=== PATIENT | female | born 1960 | race Hispanic/Latino ===

== ENCOUNTER → 2018-10-14 | Day surgery (SDC) | payer BC ==
[2018-09-30 13:10] VITALS: BMI 38.2
[~2018-10-14] MED LIST: Bupivacaine 0.5% 50 ML IJ ONE; HYDROmorphone 0.5 mg/0.5 ml ISec IVP PRN; Lactated Ringer's 1,000 ML IV SCH; Lidocaine 1% Inj (20ml) ONE; Liquid Adhesive TOP ONE; Midazolam 2 MG/2 ML VIAL ONE; Oxycodone/Acetaminophen 5/325 mg Tab ONE; Oxycodone/Acetaminophen 5/325 mg Tab PO PRN; Propofol 10 mg/ml Inj (20 ML) ONE
--- NOTE | 2018-10-14 11:42 | PCM.SURG1 ---
Surgeon's Initial Post Op Note - Surgeon's Notes Surgeon: Dr. Mccoy Moveman: Dr. Corral Type of Anesthesia: General Endo Anesthesia Administered By: Dr. Monzon Pre-Operative Diagnosis: Left groin intramuscular mass Operative Findings: Large 20c x 15 cm lipomatous deep intramuscular left groin mass Post-Operative Diagnosis: same Operation Performed: Left groin deep intramuscular mass removal Specimen/Specimens Removed: large left groin intramuscular mass Estimated Blood Loss: EBL {In ML}: 15 Blood Products Given: N/A Drains Used: No Drains Post-Op Condition: Fair Date of Surgery/Procedure: 10/14/18 Time of Surgery/Procedure: 09:45
[2018-10-14 11:53] VITALS: TEMP 98.1
[2018-10-14 12:58] VITALS: PULSE 83; RESP 20; O2SAT 94
[2018-10-14 14:36] VITALS: BP 121/72
--- NOTE | 2018-10-15 04:58 | OP ---
PROCEDURE DATE: 10/14/2018 PREOPERATIVE DIAGNOSIS: Deep intramuscular mass of the left groin. POSTOPERATIVE DIAGNOSIS: Deep intramuscular mass of the left groin. PROCEDURE PERFORMED: Excision of the 20 x 15 cm deep intramuscular left groin mass. SURGEON: Byron Mccoy MD LINING SCRUBBER: Robin Corral DO ANESTHESIA: General LMA anesthesia. ANESTHESIA ADMINISTERED BY: Dr. Monzon. SPECIMEN: Large groin mass, possibly representing lipoma. ESTIMATED BLOOD LOSS: Minimal. DRAINS: None. INDICATION: The patient is a 58-year-old female who is morbidly obese, who is noted to have a large lump in the anterior upper thigh adjacent to the groin on the left side. The patient had an MRI which showed presence of large lipoma extending from superficial portion of the left thigh down into the deep portion of the thigh and between the muscles. The patient was scheduled for excision of this mass. DESCRIPTION OF PROCEDURE: The patient was brought to the operating room and placed on the operating table in supine position. The patient was connected to the EKG, blood pressure, and pulse oximetry monitors. The patient then underwent general LMA anesthesia and was prepped and draped in the usual sterile fashion. First, standard time-out procedure took place and everybody in the room agreed as to the patient's identity, diagnosis, and procedure to be performed. Using lidocaine mixed with Marcaine, the area of the incision was infiltrated, and careful dissection was done through the skin into the subcutaneous fat parallel to the inguinal crease. Once the initial fat layer was removed, we then proceeded with making an incision through the Tremayne's fascia lateral through the greater saphenous vein and bring it down towards the major vessels. The lipoma was noted initially, and the layers of above that were cleared, and the lipoma was exposed. The lipoma extended all the way down towards the deep thigh in the direction of the obturator foramen. I carefully mobilized the lipoma from in between the vessels, which appeared to be completely separates from them and proceeded with delivering it through the wound. Due to the large size of this, we proceeded with resecting the first portion of that lipoma and then going down towards excising the entire lipoma. There was a small piece of it adjacent to the pelvic bone which was resected carefully in order to avoid any injury to the adjacent vessels. A tiny piece of that was left at the rim of the obturator foramen due to the tightness of the space and may be unable to safely resect that. Given the fact that almost entire lipoma was removed, I then proceeded with irrigation of the wound. There was excellent hemostasis and no bleeding noted. We then proceeded with closing the layers by first closing the fascial layer over the muscle, then bringing the Tremayne's fascia together using 3-0 Vicryl. The deep dermal layer was used to reapproximate the skin using 3-0 Vicryl, and the skin itself was closed using a 4-0 Monocryl. A sterile Dermabond dressing was applied to the wound. The patient tolerated the procedure well, and there were no complications. The patient was awakened and transferred to the recovery room for further observation. Byron Mccoy MD MTDNicci
== END | disposition home or self-care (01) ==
LOC: SDS 08:05
PROVIDERS: ATTEND General Practice
DX: D17.24 Benign lipomatous neoplasm of skin and subcutaneous tissue of left leg (principal); E66.01 Morbid (severe) obesity due to excess calories; I10 Essential (primary) hypertension; E78.00 Pure hypercholesterolemia, unspecified; Z68.38 Body mass index [BMI] 38.0-38.9, adult; Z90.710 Acquired absence of both cervix and uterus; Z90.721 Acquired absence of ovaries, unilateral
CPT/HCPCS: 27339; 88307; J0690; J1170; J2001; J2250; J2405; J2704; J2765; J3010; J7120

== ENCOUNTER 2018-10-16 21:21 | Observation (INO) | payer BC ==
[2018-10-16 21:31] VITALS: BMI 39.1
[2018-10-16 23:19] LABS: BASO # 0.03 K/mm3 (0.0-2.0); BASO % 0.3 % (0.0-3.0); EOS # 0.3 (0.0-0.7); EOS % 3.1 % (1.5-5.0); GRAN # 6.14 (1.4-6.5); GRAN % 63.1 % (50.0-68.0); HEMOGLOBIN 13.4 g/dL (12.0-16.0); LYMPH # 2.6 (1.2-3.4); LYMPH % 26.7 % (22.0-35.0); MEAN CELL VOLUME 89.6 fl (80.0-105.0); MEAN CORPUSCULAR HEMOGLOBIN 30.2 pg (25.0-35.0); MEAN CORPUSCULAR HGB CONC 33.7 g/dl (31.0-37.0); MEAN PLATELET VOLUME 9.3 fl (7.0-11.0); MONO # 0.7 (0.1-0.6); MONO % 6.8 % (1.0-6.0); RBC 4.44 10^6/uL (3.5-6.1); RED CELL DISTRIBUTION WIDTH 12.5 % (11.5-14.5); WHITE BLOOD COUNT 9.7 10^3/uL (4.5-11.0)
--- NOTE | 2018-10-16 23:23 | ED PDOC ---
Arrival/HPI <Benjamin Hair - Last Filed: 10/17/18 00:13> - General Historian: Patient - History of Present Illness Narrative History of Present Illness (Text): 10/16/18 23:20 58yr old female presents today with left leg cellulitis s/p recent lipoma removal on 10/14/18. pt denies fever/chills. pt states this morning she didnt notice any erythema and then tonight she felt slight pain in the anterior left thigh and removed the dressing and noticed swelling, erythema, tenderness and warmth to the anterior thigh. pt denies cp or sob. no abdominal pain. no dizzi ness or weakness. no other complaints. Symptom Onset: Gradual Severity Level: Mild <Madisno Prakash - Last Filed: 10/17/18 01:11> - General Chief Complaint: Abnormal Skin Integrity Time Seen by Provider: 10/16/18 21:22 Past Medical History - Provider Review Nursing Documentation Reviewed: Yes - Travel History Have you recently traveled outside [place] w/in the past 3 mons?: No - Cardiac Hx Pacemaker: No - Neurological Hx Paralysis: No - Hematological/Oncological Hx Blood Transfusions: No - Musculoskeletal/Rheumatological Hx Musculoskeletal Disorders: Yes Other/Comment: Lipoma Left Inguinal Region. - Psychiatric Hx Emotional Abuse: No Hx Physical Abuse: No Hx Substance Use: No - Surgical History Other/Comment: Lipoma Excision Left Inguinal Region. - Anesthesia Hx Anesthesia Reactions: No Hx Malignant Hyperthermia: No - Suicidal Assessment Feels Threatened In Home Enviroment: No <Madison Prakash - Last Filed: 10/17/18 01:11> Family/Social History - Physician Review Nursing Documentation Reviewed: Yes Family/Social History: Unknown Family HX Smoking Status: Never Smoked Hx Alcohol Use: Yes (WINE) Hx Substance Use: No <Madison Prakash - Last Filed: 10/17/18 01:11> Allergies/Home Meds <Benjamin Hair - Last Filed: 10/17/18 00:13> <Madison Prakash - Last Filed: 10/17/18 01:11> Allergies/Adverse Reactions: Allergies No Known Allergies Allergy (Verified 12/19/13 12:54) Home Medications: Home Meds Medication Instructions Recorded Confirmed Atorvastatin Calcium [Lipitor] 10 mg PO QPM 12/19/13 10/16/18 Aspirin [Aspirin Low Dose] 81 mg PO DAILY 08/20/15 10/16/18 amLODIPine [Norvasc] 10 mg PO DAILY 08/03/17 10/16/18 buPROPion SR [Wellbutrin SR 150 MG] 450 mg PO DAILY 08/03/17 10/16/18 Calcium Carbonate/Vitamin D3 1 tab PO DAILY 09/30/18 10/16/18 [Calcium 600 + Vit D Tablet] Escitalopram [Lexapro] 25 mg PO DAILY 09/30/18 10/16/18 Hydrochlorothiazide [Microzide] 12.5 mg PO DAILY 09/30/18 10/16/18 Multivitamin [Multivitamins] 1 cap PO DAILY 09/30/18 10/16/18 rOPINIRole [Requip] 0.25 mg PO QPM 09/30/18 10/16/18 Review of Systems - Review of Systems Constitutional: absent: Fatigue, Fevers Respiratory: absent: SOB, Cough Cardiovascular: absent: Chest Pain, Palpitations Gastrointestinal: absent: Abdominal Pain, Nausea, Vomiting Musculoskeletal: Arthralgias Skin: Cellulitis Neurological: absent: Headache, Dizziness Psychiatric: absent: Anxiety, Depression <Madison Prakash - Last Filed: 10/17/18 01:11> Physical Exam Vital Signs Temp Pulse Resp BP Pulse Ox 10/16/18 21:31 99 F 89 18 149/89 95 <Benjamin Hair - Last Filed: 10/17/18 00:13> Vital Signs Reviewed: Yes Vital Signs Temp Pulse Resp BP Pulse Ox 10/16/18 21:31 99 F 89 18 149/89 95 Temperature: Afebrile Blood Pressure: Normal Pulse: Regular Respiratory Rate: Normal Appearance: Positive for: Well-Appearing, Non-Toxic, Comfortable Pain Distress: None Mental Status: Positive for: Alert and Oriented X 3 - Systems Exam Head: Present: Atraumatic Mouth: Present: Moist Mucous Membranes Neck: Present: Normal Range of Motion Respiratory/Chest: Present: Clear to Auscultation, Good Air Exchange. No: Respiratory Distress, Accessory Muscle Use Cardiovascular: Present: Regular Rate and Rhythm, Normal S1, S2. No: Murmurs Back: Present: Normal Inspection Upper Extremity: Present: Normal ROM Lower Extremity: Present: Normal ROM, Tenderness (left leg; there is a large area of erythema, warmth, tenderness extending along the anterior aspect of the thigh. there is induration surrounding the large incision along the thigh just distal to the groin. ), Swelling, Erythema, Neurovascularly Intact, Capillary Refill < 2 s Neurological: Present: GCS=15, Speech Normal Skin: Present: Warm, Dry, Normal Color Psychiatric: Present: Alert <Madison Prakash - Last Filed: 10/17/18 01:11> Medical Decision Making - Lab Interpretations Lab Results: 10/16/18 22:40 10/16/18 22:40 Lab Results 10/16/18 22:40: WBC 9.7, RBC 4.44, Hgb 13.4, Hct 39.8, MCV 89.6, MCH 30.2, MCHC 33.7, RDW 12.5, Plt Count 407, MPV 9.3, Gran % 63.1, Lymph % (Auto) 26.7, [place] % (Auto) 6.8 H, Eos % (Auto) 3.1, Baso % (Auto) 0.3, Gran # 6.14, Lymph # (Auto) 2.6, [place] # (Auto) 0.7 H, Eos # (Auto) 0.3, Baso # (Auto) 0.03 10/16/18 22:40: Sodium 137, Potassium 3.2 L, Chloride 96 L, Carbon Dioxide 32, Anion Gap 13, BUN 19, Creatinine 0.9, Est GFR ( Amer) > 60, Est GFR (Non- Af Amer) > 60, Random Glucose 156 H, Calcium 9.5, Total Bilirubin 1.4 H, AST 35, ALT 29, Alkaline Phosphatase 94, Total Protein 7.3, Albumin 4.2, Globulin 3.0, Albumin/Globulin Ratio 1.4 - Medication Orders Current Medication Orders: Cefazolin Sodium (Ancef 1gm In Ns) 1 gm in 100 mls @ 100 mls/hr IVPB STAT STA; Protocol Stop: 10/17/18 01:01 <Benjamin Hair - Last Filed: 10/17/18 00:13> ED Course and Treatment: 10/16/18 23:26 58yr old female with cellulitis to the left thigh. recent surgery 2 days ago. cbc; wnl cmp: wnl blood cultures pending pt started on vanco and zosyn IV. pt seen by dr. farias in er; case discussed with dr. Avelar covering for Dr. Mccoy. would like patient to be admitted with IV abx. unable to admit directly to surgery; patients PMD is dr. ma. will admit to hospitalist with surgical consult. dr. Mccoy case discussed with dr. mckeon. accepts admission I discussed the plan in depth with the patient she is in agreement to stay in the hospital for further evaluation and IV antibiotics All aspects of this case were discussed the attending of record. Impression:cellulitis, leg admit med/surg observational status. <Madison Prakash - Last Filed: 10/17/18 01:11> - PA / FLEXOGRAPHIC PRESS OPERATOR / Resident Statement / has reviewed & agrees with the documentation as recorded. / has examined the patient and agrees with the treatment plan. <Benjamin Hair - Last Filed: 10/17/18 00:13> Disposition/Present on Arrival <Benjamin Hair - Last Filed: 10/17/18 00:13> - Present on Arrival Any Indicators Present on Arrival: No History of DVT/PE: No History of Uncontrolled Diabetes: No Urinary Catheter: No History of Decub. Ulcer: No History Surgical Site Infection Following: None - Disposition Have Diagnosis and Disposition been Completed?: Yes Disposition Time: 23:00 Patient Plan: Observation <Madison Prakash - Last Filed: 10/17/18 01:11> - Disposition Diagnosis: Cellulitis of leg Disposition: HOSPITALIZED Condition: FAIR Discharge Instructions (ExitCare): Cellulitis (ED) Forms: [employer] (Kazakh)
[2018-10-16 23:30] LABS: ALB/GLOB RATIO 1.4 (1.1-1.8); ALBUMIN 4.2 g/dL (3.0-4.8); ALT/SGPT 29 U/L (7-56); AST/SGOT 35 U/L (14-36); BLOOD UREA NITROGEN 19 mg/dL (7-21); CALCIUM 9.5 mg/dL (8.4-10.5); GFR NON-AFRICAN AMERICAN > 60
[2018-10-17] MEDS ORDERED: ceFAZolin 1 gm in NS 1 GM/100 ML BAG IVPB STA (00:02)
[2018-10-17] MEDS ORDERED: Piperacillin/Tazobact 3.375 gm 100 ML IVPB STA (00:36)
[2018-10-17] MEDS ORDERED: Vancomycin 1gm in NS 250ml 1 GM/250 ML BAG IVPB STA (00:36)
--- NOTE | 2018-10-17 01:35 | CP.PCM.HP ---
History of Present Illness - History of Present Illness History of Present Illness: H&P for Dr. Avelar, covering for Dr. Mccoy Consulted for: erythema and swelling at surgical site Pt is a 58F who underwent an excision of a large, deep, intramuscular lipoma of the left thigh 2 days ago through same day surgery and was discharged to home. Patient states that she removed the dressing this AM, and around 7PM tonight noted redness and swelling of the thigh so came to the Emergency room. Patient does have some pain directly around the incision. Patient denies any fevers, chills, numbness, tingling, paralysis, chest pain, abdominal pain, shortness of breath. Patient takes baby aspirin at home, but no other blood thinners. PMH: hypertension, hyperlipidemia, depression PSH: deep medial left thigh lipoma excision 10/14/18, right finger surgery, c- section x2, hysterectomy, oophorectomy All: NKDA Social: Denies tobacco, admits social ETOH, denies any drugs Present on Admission - Present on Admission Any Indicators Present on Admission: No Review of Systems - Review of Systems All systems: reviewed and no additional remarkable complaints except (as per HPI) Past Patient History - Past Medical History & Family History Past Medical History?: Yes Past Family History: Reviewed and not pertinent - Past Social History Smoking Status: Never Smoked Alcohol: Occasional Drugs: Denies Home Situation {Lives}: With Family - CARDIAC Hx Pacemaker: No - NEUROLOGICAL Hx Paralysis: No - HEMATOLOGICAL/ONCOLOGICAL Hx Blood Transfusions: No - MUSCULOSKELETAL/RHEUMATOLOGICAL Hx Musculoskeletal Disorders: Yes Other/Comment: Lipoma Left Inguinal Region. - PSYCHIATRIC Hx Emotional Abuse: No Hx Physical Abuse: No Hx Substance Use: No - SURGICAL HISTORY Other/Comment: Lipoma Excision Left Inguinal Region. - ANESTHESIA Hx Anesthesia Reactions: No Hx Malignant Hyperthermia: No Meds Allergies/Adverse Reactions: Allergies Allergy/AdvReac Type Severity Reaction Status Date / Time No Known Allergies Allergy Verified 12/19/13 12:54 Physical Exam - Constitutional Appears: Well, Non-toxic, No Acute Distress - Head Exam Head Exam: ATRAUMATIC, NORMOCEPHALIC - Eye Exam Eye Exam: Normal appearance. absent: Conjunctival injection, Scleral icterus - ENT Exam ENT Exam: Mucous Membranes Moist, Normal Oropharynx - Respiratory Exam Respiratory Exam: NORMAL BREATHING PATTERN. absent: Accessory Muscle Use, Respiratory Distress - Cardiovascular Exam Cardiovascular Exam: RRR - GI/Abdominal Exam GI & Abdominal Exam: Soft. absent: Distended, Tenderness - Extremities Exam Extremities exam: Positive for: pedal pulses present. Negative for: calf tenderness, pedal edema Additional comments: left medial thigh with surgical incision well approximated with dermabond, no drainage or bleeding from the site, firm area palpated under the incision will no fluctuance Erythema extending from the inguinal crease to just above the knee distally, midline of the lateral thigh laterally, and midline anterior medial thigh, area of ecchymosis of the medial thigh. Area is very warm to the touch - Neurological Exam Neurological exam: Alert, Oriented x3 Additional comments: no motor sensory deficit of the BL lower extremities - Psychiatric Exam Psychiatric exam: Normal Affect, Normal Mood - Skin Skin Exam: Dry, Normal Color, Warm Additional comments: except as noted above Results - Vital Signs Recent Vital Signs: Last Vital Signs Temp 98.8 F 10/17/18 00:29 Pulse 84 10/17/18 00:29 Resp 18 10/17/18 00:29 BP 120/75 10/17/18 00:29 Pulse Ox 100 10/17/18 00:29 - Labs Result Diagrams: 10/16/18 22:40 10/16/18 22:40 Labs: Laboratory Results - last 24 hr 10/16/18 10/16/18 22:40 22:40 WBC 9.7 RBC 4.44 Hgb 13.4 Hct 39.8 MCV 89.6 MCH 30.2 MCHC 33.7 RDW 12.5 Plt Count 407 MPV 9.3 Gran % 63.1 Lymph % (Auto) 26.7 [place] % (Auto) 6.8 H Eos % (Auto) 3.1 Baso % (Auto) 0.3 Gran # 6.14 Lymph # (Auto) 2.6 [place] # (Auto) 0.7 H Eos # (Auto) 0.3 Baso # (Auto) 0.03 Sodium 137 Potassium 3.2 L Chloride 96 L Carbon Dioxide 32 Anion Gap 13 BUN 19 Creatinine 0.9 Est GFR ( Amer) > 60 Est GFR (Non-Af Amer) > 60 Random Glucose 156 H Calcium 9.5 Total Bilirubin 1.4 H AST 35 ALT 29 Alkaline Phosphatase 94 Total Protein 7.3 Albumin 4.2 Globulin 3.0 Albumin/Globulin Ratio 1.4 Assessment & Plan - Assessment and Plan (Free Text) Assessment: 58F POD#1 s/p excision of large, deep lipoma of the medial left upper thigh with swelling and erythema of the left thigh: contact dermatitis vs cellulitis vs wound infection Plan: Admit to med surgery for observation F/U AM labwork Close clinical examinations US of the left lower extremity IV antibiotics PRN pain medication restart home medications Re-assess in the AM Supplement potassium HHD DVT ppx Discussed with Dr. Avelar, covering for Dr. Nadine Michael, PGY2
[2018-10-17] MEDS ORDERED: Potassium Chloride 20 mEq ER Tab PO STA (01:48)
--- NOTE | 2018-10-17 02:14 | CP.PCM.CON ---
History of Present Illness - History of Present Illness History of Present Illness: H&P for Dr. Avelar, covering for Dr. Mccoy Consulted for: erythema and swelling at surgical site Pt is a 58F who underwent an excision of a large, deep, intramuscular lipoma of the left thigh 2 days ago through same day surgery and was discharged to home. Patient states that she removed the dressing this AM, and around 7PM tonight noted redness and swelling of the thigh so came to the Emergency room. Patient does have some pain directly around the incision. Patient denies any fevers, chills, numbness, tingling, paralysis, chest pain, abdominal pain, shortness of breath. Patient takes baby aspirin at home, but no other blood thinners. PMH: hypertension, hyperlipidemia, depression PSH: deep medial left thigh lipoma excision 10/14/18, right finger surgery, c- section x2, hysterectomy, oophorectomy All: NKDA Social: Denies tobacco, admits social ETOH, denies any drugs Review of Systems - Review of Systems All systems: reviewed and no additional remarkable complaints except (as per HPI) Past Patient History - Past Medical History & Family History Past Medical History?: Yes Past Family History: Reviewed and not pertinent - Past Social History Smoking Status: Never Smoked Alcohol: Occasional Drugs: Denies Home Situation {Lives}: With Family - CARDIAC Hx Pacemaker: No - NEUROLOGICAL Hx Paralysis: No - HEMATOLOGICAL/ONCOLOGICAL Hx Blood Transfusions: No - MUSCULOSKELETAL/RHEUMATOLOGICAL Hx Musculoskeletal Disorders: Yes Other/Comment: Lipoma Left Inguinal Region. - PSYCHIATRIC Hx Emotional Abuse: No Hx Physical Abuse: No Hx Substance Use: No - SURGICAL HISTORY Other/Comment: Lipoma Excision Left Inguinal Region. - ANESTHESIA Hx Anesthesia Reactions: No Hx Malignant Hyperthermia: No Meds Allergies/Adverse Reactions: Allergies Allergy/AdvReac Type Severity Reaction Status Date / Time No Known Allergies Allergy Verified 12/19/13 12:54 - Medications Medications: Current Medications Acetaminophen (Tylenol 325mg Tab) 650 mg PO Q6 PRN PRN Reason: Pain, moderate (4-7) Amlodipine Besylate (Norvasc) 10 mg PO DAILY [facility] Aspirin (Ecotrin) 81 mg PO DAILY [facility] Atorvastatin Calcium (Lipitor) 10 mg PO QPM [facility] Bupropion HCl (Wellbutrin Xl) 450 mg PO DAILY [facility] Calcium Carbonate (Caltrate) 600 mg PO DAILY [facility] Enoxaparin Sodium (Lovenox) 40 mg SC DAILY [facility]; Protocol Escitalopram Oxalate (Lexapro) 25 mg PO DAILY [facility] Hydrochlorothiazide (Microzide) 12.5 mg PO DAILY [facility] Vancomycin HCl (Vancomycin 1gm) 1 gm in 250 mls @ 167 mls/hr IVPB Q12H [facility]; Protocol Multivitamins (Thera Tab) 1 tab PO DAILY [facility] Ropinirole HCl (Requip) 0.25 mg PO QPM [facility] Vitamin D (Vitamin D 400 Intl Units Tab) 200 intlu PO DAILY [facility] Physical Exam - Additional Findings Additional findings: - Constitutional Appears: Well, Non-toxic, No Acute Distress - Head Exam Head Exam: ATRAUMATIC, NORMOCEPHALIC - Eye Exam Eye Exam: Normal appearance. absent: Conjunctival injection, Scleral icterus - ENT Exam ENT Exam: Mucous Membranes Moist, Normal Oropharynx - Respiratory Exam Respiratory Exam: NORMAL BREATHING PATTERN. absent: Accessory Muscle Use, Respiratory Distress - Cardiovascular Exam Cardiovascular Exam: RRR - GI/Abdominal Exam GI & Abdominal Exam: Soft. absent: Distended, Tenderness - Extremities Exam Extremities exam: Positive for: pedal pulses present. Negative for: calf tenderness, pedal edema Additional comments: left medial thigh with surgical incision well approximated with dermabond, no drainage or bleeding from the site, firm area palpated under the incision will no fluctuance Erythema extending from the inguinal crease to just above the knee distally, midline of the lateral thigh laterally, and midline anterior medial thigh, area of ecchymosis of the medial thigh. Area is very warm to the touch - Neurological Exam Neurological exam: Alert, Oriented x3 Additional comments: no motor sensory deficit of the BL lower extremities - Psychiatric Exam Psychiatric exam: Normal Affect, Normal Mood - Skin Skin Exam: Dry, Normal Color, Warm Additional comments: except as noted above Results - Vital Signs Recent Vital Signs: Last Vital Signs Temp 98.8 F 10/17/18 00:29 Pulse 84 10/17/18 00:29 Resp 18 10/17/18 00:29 BP 120/75 10/17/18 00:29 Pulse Ox 100 10/17/18 00:29 - Labs Result Diagrams: 10/16/18 22:40 10/16/18 22:40 Labs: Laboratory Results - last 24 hr 10/16/18 10/16/18 22:40 22:40 WBC 9.7 RBC 4.44 Hgb 13.4 Hct 39.8 MCV 89.6 MCH 30.2 MCHC 33.7 RDW 12.5 Plt Count 407 MPV 9.3 Gran % 63.1 Lymph % (Auto) 26.7 [place] % (Auto) 6.8 H Eos % (Auto) 3.1 Baso % (Auto) 0.3 Gran # 6.14 Lymph # (Auto) 2.6 [place] # (Auto) 0.7 H Eos # (Auto) 0.3 Baso # (Auto) 0.03 Sodium 137 Potassium 3.2 L Chloride 96 L Carbon Dioxide 32 Anion Gap 13 BUN 19 Creatinine 0.9 Est GFR ( Amer) > 60 Est GFR (Non-Af Amer) > 60 Random Glucose 156 H Calcium 9.5 Total Bilirubin 1.4 H AST 35 ALT 29 Alkaline Phosphatase 94 Total Protein 7.3 Albumin 4.2 Globulin 3.0 Albumin/Globulin Ratio 1.4 Assessment & Plan - Assessment and Plan (Free Text) Assessment: 58F POD#1 s/p excision of large, deep lipoma of the medial left upper thigh with swelling and erythema of the left thigh: contact dermatitis vs cellulitis vs wound infection Plan: Admit to med surgery for observation F/U AM labwork Close clinical examinations US of the left lower extremity IV antibiotics PRN pain medication restart home medications Re-assess in the AM Supplement potassium HHD DVT ppx Discussed with Dr. Avelar, covering for Dr. Nadine Michael, PGY2
--- NOTE | 2018-10-17 02:51 | CP.PCM.HP ---
<Shyla Leon - Last Filed: 10/17/18 06:03> History of Present Illness - History of Present Illness History of Present Illness: Shyla Leon, PGY1 Hospital H&P This is a 58 year old female with PMH of depression, HTN and HLD presenting to the hospital for one day history of left thigh tenderness, redness and swelling. Patient states that she had surgical removal of a lipoma on the left thigh on Sunday and was asymptomatic until this past evening. She denies any local trauma or injury to the area. She denies any similar symptoms in the past. She denies CP, SOB, fevers, headaches, chills, nausea, vomiting, back pain, abdominal pain, diarrhea, constipation, numbness, tingling, swelling, weakness, sensory or motor loss, recent travel, sickness, and lifestyle changes including diet and weight. 12 point ROS noted here, otherwise unremarkable. PMD: Dr. Aguilar PMH: hypertension, hyperlipidemia, depression SH: denies drinking, smoking and drug use Sx: right finger surgery, x2, hysterectomy, oophorectomy , deep medial left thigh lipoma excision 10/14/18 All: NKDA FH: lung cancer Social: Denies tobacco, admits social ETOH, denies any drugs Present on Admission - Present on Admission Any Indicators Present on Admission: No Past Patient History - Past Medical History & Family History Past Medical History?: Yes Past Family History: Reviewed and not pertinent - Past Social History Smoking Status: Never Smoked Alcohol: Occasional Drugs: Denies Home Situation {Lives}: With Family - CARDIAC Hx Pacemaker: No - NEUROLOGICAL Hx Paralysis: No - HEMATOLOGICAL/ONCOLOGICAL Hx Blood Transfusions: No - MUSCULOSKELETAL/RHEUMATOLOGICAL Hx Musculoskeletal Disorders: Yes Other/Comment: Lipoma Left Inguinal Region. - PSYCHIATRIC Hx Emotional Abuse: No Hx Physical Abuse: No Hx Substance Use: No - SURGICAL HISTORY Other/Comment: Lipoma Excision Left Inguinal Region. - ANESTHESIA Hx Anesthesia Reactions: No Hx Malignant Hyperthermia: No Meds Allergies/Adverse Reactions: Allergies Allergy/AdvReac Type Severity Reaction Status Date / Time No Known Allergies Allergy Verified 10/17/18 11:35 Physical Exam - Constitutional Appears: No Acute Distress - Head Exam Head Exam: ATRAUMATIC, NORMAL INSPECTION - Eye Exam Eye Exam: EOMI Pupil Exam: PERRL - ENT Exam ENT Exam: Mucous Membranes Moist - Respiratory Exam Respiratory Exam: Clear to Auscultation Bilateral, NORMAL BREATHING PATTERN. absent: Accessory Muscle Use, Wheezes - Cardiovascular Exam Cardiovascular Exam: REGULAR RHYTHM, +S1, +S2, Systolic Murmur - GI/Abdominal Exam GI & Abdominal Exam: Normal Bowel Sounds, Soft. absent: Firm, Guarding, Tenderness - Extremities Exam Extremities exam: Positive for: pedal pulses present. Negative for: calf tenderness Additional comments: left proximal thigh linear incision site measuring 7cm that is non bleeding and no pus or drainage appreciate. Diffuse erythematous lesion noted surrounding incision site measuring approx [id number]. Mild tenderness to palpation. No induration noted. No motor or sensory loss appreciated. - Neurological Exam Neurological exam: Alert, Oriented x3 - Skin Skin Exam: Normal Color, Warm Results - Vital Signs Recent Vital Signs: Last Vital Signs Temp 98.8 F 10/17/18 00:29 Pulse 84 10/17/18 00:29 Resp 18 10/17/18 00:29 BP 120/75 10/17/18 00:29 Pulse Ox 100 10/17/18 00:29 - Labs Result Diagrams: 10/16/18 22:40 10/16/18 22:40 Labs: Laboratory Results - last 24 hr 10/16/18 10/16/18 22:40 22:40 WBC 9.7 RBC 4.44 Hgb 13.4 Hct 39.8 MCV 89.6 MCH 30.2 MCHC 33.7 RDW 12.5 Plt Count 407 MPV 9.3 Gran % 63.1 Lymph % (Auto) 26.7 [place] % (Auto) 6.8 H Eos % (Auto) 3.1 Baso % (Auto) 0.3 Gran # 6.14 Lymph # (Auto) 2.6 [place] # (Auto) 0.7 H Eos # (Auto) 0.3 Baso # (Auto) 0.03 Sodium 137 Potassium 3.2 L Chloride 96 L Carbon Dioxide 32 Anion Gap 13 BUN 19 Creatinine 0.9 Est GFR ( Amer) > 60 Est GFR (Non-Af Amer) > 60 Random Glucose 156 H Calcium 9.5 Total Bilirubin 1.4 H AST 35 ALT 29 Alkaline Phosphatase 94 Total Protein 7.3 Albumin 4.2 Globulin 3.0 Albumin/Globulin Ratio 1.4 Assessment & Plan - Assessment and Plan (Free Text) Assessment: This is a 58 year old female with PMH of depression, HTN and HLD presenting to the hospital for one day history of left thigh tenderness, redness and swelling. Plan: Left thigh lesion -wound infection vs cellulitis -afebrile, WBC unremarkable -blood, wound culture pending -duplex LE pending -vancomycin day 1 -CRP, ESR pending -NS @ 75cc -Gen surg on consult -ID on consult Hypokalemia -repleted, f/u AM labs Hx of HLD -continue lipitor Hx of HTN -continue norvasc, HCTZ Hx of depression -continue wellbutrin, lexapro PPX/Diet -lovenox -HHD Patient seen and case discussed with attending, Dr. Reid <Felisa Reid - Last Filed: 10/17/18 19:05> Results - Vital Signs Recent Vital Signs: Last Vital Signs Temp 98.2 F 10/17/18 15:57 Pulse 77 10/17/18 15:57 Resp 18 10/17/18 15:57 BP 136/84 10/17/18 15:57 Pulse Ox 100 10/17/18 15:57 - Labs Result Diagrams: 10/17/18 04:15 10/17/18 04:15 Labs: Laboratory Results - last 24 hr 10/16/18 10/16/18 10/17/18 22:40 22:40 04:15 WBC 9.7 8.5 RBC 4.44 4.27 Hgb 13.4 12.9 Hct 39.8 38.2 MCV 89.6 89.5 MCH 30.2 30.2 MCHC 33.7 33.8 RDW 12.5 12.6 Plt Count 407 393 MPV 9.3 8.9 Gran % 63.1 57.6 Lymph % (Auto) 26.7 30.0 [place] % (Auto) 6.8 H 8.2 H Eos % (Auto) 3.1 4.0 Baso % (Auto) 0.3 0.2 Gran # 6.14 4.90 Lymph # (Auto) 2.6 2.6 [place] # (Auto) 0.7 H 0.7 H Eos # (Auto) 0.3 0.3 Baso # (Auto) 0.03 0.02 ESR 52 H Sodium 137 Potassium 3.2 L Chloride 96 L Carbon Dioxide 32 Anion Gap 13 BUN 19 Creatinine 0.9 Est GFR ( Amer) > 60 Est GFR (Non-Af Amer) > 60 Random Glucose 156 H Calcium 9.5 Phosphorus Magnesium Total Bilirubin 1.4 H AST 35 ALT 29 Alkaline Phosphatase 94 C-Reactive Protein Total Protein 7.3 Albumin 4.2 Globulin 3.0 Albumin/Globulin Ratio 1.4 10/17/18 04:15 WBC RBC Hgb Hct MCV MCH MCHC RDW Plt Count MPV Gran % Lymph % (Auto) [place] % (Auto) Eos % (Auto) Baso % (Auto) Gran # Lymph # (Auto) [place] # (Auto) Eos # (Auto) Baso # (Auto) ESR Sodium 138 Potassium 3.8 Chloride 100 Carbon Dioxide 31 Anion Gap 11 BUN 17 Creatinine 0.9 Est GFR ( Amer) > 60 Est GFR (Non-Af Amer) > 60 Random Glucose 135 H Calcium 9.2 Phosphorus 4.2 Magnesium 2.0 Total Bilirubin AST ALT Alkaline Phosphatase C-Reactive Protein 69.10 H Total Protein Albumin Globulin Albumin/Globulin Ratio Attending/Attestation - Attestation I have personally seen and examined this patient.: Yes I have fully participated in the care of the patient.: Yes I have reviewed all pertinent clinical information: Yes
[2018-10-17] MEDS ORDERED: Sodium Chloride 0.9% 1,000 ML IV SCH (03:15)
[2018-10-17 04:48] LABS: BASO # 0.02 K/mm3 (0.0-2.0); BASO % 0.2 % (0.0-3.0); EOS # 0.3 (0.0-0.7); GRAN # 4.9 (1.4-6.5); GRAN % 57.6 % (50.0-68.0); HEMOGLOBIN 12.9 g/dL (12.0-16.0); LYMPH # 2.6 (1.2-3.4); MEAN CELL VOLUME 89.5 fl (80.0-105.0); MEAN CORPUSCULAR HEMOGLOBIN 30.2 pg (25.0-35.0); MEAN CORPUSCULAR HGB CONC 33.8 g/dl (31.0-37.0); MEAN PLATELET VOLUME 8.9 fl (7.0-11.0); MONO # 0.7 (0.1-0.6); MONO % 8.2 % (1.0-6.0); RBC 4.27 10^6/uL (3.5-6.1); RED CELL DISTRIBUTION WIDTH 12.6 % (11.5-14.5); WHITE BLOOD COUNT 8.5 10^3/uL (4.5-11.0)
[2018-10-17 05:19] LABS: BLOOD UREA NITROGEN 17 mg/dL (7-21); CALCIUM 9.2 mg/dL (8.4-10.5); GFR NON-AFRICAN AMERICAN > 60
[2018-10-17] MEDS: buPROPion 150 mg/24 Hours XL Tab PO SCH (09:50)
[2018-10-17] MEDS: Multivitamin Therapeutic Tab PO SCH (09:50)
[2018-10-17] MEDS: Cholecalciferol 400 Intl Units Tab PO SCH (09:51)
[2018-10-17] MEDS: Enoxaparin 40 mg Syringe SC SCH (09:57)
[2018-10-17] MEDS ORDERED: Non Formulary Medication (Calcium Carbonate/Vitamin D3 [Calcium 600 + Vit D Tablet] 1 TAB) PO SCH (10:00)
--- NOTE | 2018-10-17 10:52 | US ---
PROCEDURE: Left lower extremity venous US HISTORY: Leg pain and swelling. Evaluate for DVT. PHYSICIAN(S): Shayne Rosales MD. TECHNIQUE: Duplex sonography and color-flow Doppler with graded compression were used to evaluate the deep venous system of the left lower extremity. FINDINGS: The visualized deep venous system of the left lower extremity is sonographically normal and compressible. Normal wave forms and augmentation are seen. There is no sonographic evidence for deep venous thrombosis in the visualized segments of the left lower extremity. IMPRESSION: 1. No sonographic evidence for deep venous thrombosis in the visualized segments of the left lower extremity.
[2018-10-17] MEDS ORDERED: Meropenem IV 1 gm in NS 1 GM/50 ML BAG IVPB SCH (13:00)
[2018-10-17] MEDS: Meropenem IV 1 gm in NS 1 GM/50 ML BAG IVPB SCH ×2 (13:34→21:44)
[2018-10-17] MEDS: Vancomycin 1gm in NS 250ml 1 GM/250 ML BAG IVPB SCH (13:34)
[2018-10-17] MEDS ORDERED: Influenza Vaccine 60 mcg/0.5 mL SYR (4YR UP) IM ONE (14:15)
[2018-10-17] MEDS ORDERED: Pneumococcal 23-Valent Vaccine IM ONE (14:15)
--- NOTE | 2018-10-17 23:31 | CON ---
DATE: 10/17/2018 LOCATION: The patient is in room 570, bed 2. The patient was initially seen by me in the emergency room. CHIEF COMPLAINT: Left thigh redness times last night. HISTORY OF PRESENT ILLNESS: This is a -[id number] with morbid obesity with a BMI of 41 who has hyperlipidemia, hypertension, depression, who had a lipoma removed three days ago from the left thigh, now last night woke up with erythema and edema and pain of the left thigh with low-grade fevers, but no nausea, no vomiting. The pain is minimal, however, she states her leg became erythematous and it occurred quickly last night. There is no abdominal pain, diarrhea, or constipation. No headaches or blurred vision. No dysuria or frequency. PAST MEDICAL HISTORY: Significant for hypertension, hyperlipidemia, and depression. PAST SURGICAL HISTORY: Significant for cardiac catheterization, hysterectomy, , right finger surgery, oophorectomy. The patient has had no recent travel. FAMILY HISTORY: Both of her parents had lung cancer from smoking. ALLERGIES: THE PATIENT HAS NO KNOWN ALLERGIES. MEDICATIONS AT HOME: Includes her Wellbutrin, Norvasc, Microzide, Lexapro. PHYSICAL EXAMINATION: GENERAL: She is in bed with a temperature of 99, blood pressure is 117/70, respiratory rate of 18. HEENT: Unremarkable. NECK: Supple. LUNGS: Decreased breath sounds. HEART: Normal S1, S2. ABDOMEN: Soft. EXTREMITIES: Examination of the leg reveals a significant erythema extending her entire thigh for approximately 12 to 14 cm in the length and 8 to 10 cm wide around the incision site, there is minimal discharge. LABORATORY EXAMINATION: Reveals the patient's white count is 9.7, hemoglobin of 13, platelets of 407. Chemistry reveals a BUN of 19, creatinine of 0.9. Microbiology is noted. Ultrasound of the extremity, no evidence of DVT. ASSESSMENT AND PLAN: A 58-year-old female with hypertension, hyperlipidemia, depression with severe left thigh cellulitis, status post removal of a lipoma, postop day #3. We will treat the patient with vanco, meropenem. We will check on the cultures. We will follow clinical response, and because her age, we will order an HIV test and we will follow with you. Vadim Franz MD [facility] # [id number]
[2018-10-18] MEDS: Vancomycin 1gm in NS 250ml 1 GM/250 ML BAG IVPB SCH ×2 (02:31→13:10)
[2018-10-18] MEDS: Meropenem IV 1 gm in NS 1 GM/50 ML BAG IVPB SCH ×2 (05:02→13:09)
[2018-10-18 07:32] VITALS: PULSE 79; RESP 20; TEMP 98.5; O2SAT 95
[2018-10-18 08:08] LABS: BASO # 0.04 K/mm3 (0.0-2.0); BASO % 0.6 % (0.0-3.0); EOS # 0.4 (0.0-0.7); EOS % 5.8 % (1.5-5.0); GRAN # 4.15 (1.4-6.5); GRAN % 57.8 % (50.0-68.0); HEMOGLOBIN 13.2 g/dL (12.0-16.0); LYMPH # 2.1 (1.2-3.4); LYMPH % 29.3 % (22.0-35.0); MEAN CELL VOLUME 89.9 fl (80.0-105.0); MEAN CORPUSCULAR HEMOGLOBIN 30.2 pg (25.0-35.0); MEAN CORPUSCULAR HGB CONC 33.6 g/dl (31.0-37.0); MEAN PLATELET VOLUME 8.8 fl (7.0-11.0); MONO # 0.5 (0.1-0.6); MONO % 6.5 % (1.0-6.0); RBC 4.37 10^6/uL (3.5-6.1); RED CELL DISTRIBUTION WIDTH 12.4 % (11.5-14.5); WHITE BLOOD COUNT 7.2 10^3/uL (4.5-11.0)
[2018-10-18 08:22] LABS: BLOOD UREA NITROGEN 12 mg/dL (7-21); CALCIUM 9.3 mg/dL (8.4-10.5); GFR NON-AFRICAN AMERICAN > 60
[2018-10-18] MEDS: Multivitamin Therapeutic Tab PO SCH (10:17)
[2018-10-18] MEDS: Enoxaparin 40 mg Syringe SC SCH (10:17)
[2018-10-18] MEDS: buPROPion 150 mg/24 Hours XL Tab PO SCH (10:18)
[2018-10-18] MEDS: Cholecalciferol 400 Intl Units Tab PO SCH (10:18)
[2018-10-18 10:27] VITALS: BP 115/79
--- NOTE | 2018-10-18 10:54 | CP.PCM.PN ---
Subjective - Date & Time of Evaluation Date of Evaluation: 10/18/18 Time of Evaluation: 06:55 - Subjective Subjective: Surgery Progress note- Dr. Mccoy Patient seen and examined at bedside. no new complaints. LLE erythema and swelling improved. + OOB and ambulating. tolerating regular diet. denies nausea, vomiting, fevers, chills. currently on IV Abx Objective - Vital Signs/Intake and Output Vital Signs (last 24 hours): Temp Pulse Resp BP Pulse Ox 98.5 F 79 20 115/79 95 10/18/18 06:00 10/18/18 06:00 10/18/18 06:00 10/18/18 10:21 10/18/18 06:00 Intake and Output: 10/18/18 10/18/18 06:59 18:59 Intake Total 800 Balance 800 - Medications Medications: Current Medications Acetaminophen (Tylenol 325mg Tab) 650 mg PO Q6 PRN PRN Reason: Pain, moderate (4-7) Amlodipine Besylate (Norvasc) 10 mg PO DAILY [facility] Last Admin: 10/18/18 10:21 Dose: 10 mg Aspirin (Ecotrin) 81 mg PO DAILY [facility] Last Admin: 10/18/18 10:17 Dose: 81 mg Atorvastatin Calcium (Lipitor) 10 mg PO QPM [facility] Last Admin: 10/17/18 17:18 Dose: 10 mg Bupropion HCl (Wellbutrin Xl) 450 mg PO DAILY [facility] Last Admin: 10/18/18 10:18 Dose: 450 mg Calcium Carbonate (Caltrate) 600 mg PO DAILY [facility] Last Admin: 10/18/18 10:17 Dose: 600 mg Enoxaparin Sodium (Lovenox) 40 mg SC DAILY [facility]; Protocol Last Admin: 10/18/18 10:17 Dose: 40 mg Escitalopram Oxalate (Lexapro) 25 mg PO DAILY [facility] Last Admin: 10/18/18 10:17 Dose: 25 mg Hydrochlorothiazide (Microzide) 12.5 mg PO DAILY [facility] Last Admin: 10/18/18 10:18 Dose: 12.5 mg Vancomycin HCl (Vancomycin 1gm) 1 gm in 250 mls @ 167 mls/hr IVPB Q12H [facility]; Protocol Last Admin: 10/18/18 02:31 Dose: 167 mls/hr Sodium Chloride (Sodium Chloride 0.9%) 1,000 mls @ 75 mls/hr IV .[id number] [facility] Last Admin: 10/17/18 03:33 Dose: 75 mls/hr Meropenem (Merrem Iv 1 Gm Premix) 1 gm in 50 mls @ 12.5 mls/hr IVPB Q8H [facility]; Protocol Stop: 10/26/18 13:01 Last Admin: 10/18/18 05:02 Dose: 12.5 mls/hr Multivitamins (Thera Tab) 1 tab PO DAILY [facility] Last Admin: 10/18/18 10:17 Dose: 1 tab Ropinirole HCl (Requip) 0.25 mg PO QPM [facility] Last Admin: 10/17/18 17:17 Dose: 0.25 mg Vitamin D (Vitamin D 400 Intl Units Tab) 200 intlu PO DAILY [facility] Last Admin: 10/18/18 10:18 Dose: 200 intlu - Labs Labs: 10/18/18 08:00 10/18/18 08:00 - Constitutional Appears: Non-toxic, No Acute Distress - Head Exam Head Exam: ATRAUMATIC - Eye Exam Eye Exam: EOMI. absent: Scleral icterus - ENT Exam ENT Exam: Mucous Membranes Moist - Respiratory Exam Respiratory Exam: NORMAL BREATHING PATTERN. absent: Accessory Muscle Use, Respiratory Distress - GI/Abdominal Exam GI & Abdominal Exam: Soft. absent: Distended, Firm, Guarding, Rigid, Tenderness - Extremities Exam Additional comments: LLE erythema improving. no induration. improving from the demarcation - Neurological Exam Neurological Exam: Alert, Awake, Oriented x3 - Psychiatric Exam Psychiatric exam: Normal Affect - Skin Skin Exam: Intact, Warm Assessment and Plan - Assessment and Plan (Free Text) Assessment: 58F s/p excision of left groin mass w/ skin erythema post-op Plan: - continue w/ abx - cleared for ambulation as tolerated - no acute surgical intervention at this time - plan to follow up in clinic in 1 week - further recs per Dr. Nadine Corral PGY2
--- NOTE | 2018-10-18 13:36 | CP.PCM.DIS ---
<LuisErnestine - Last Filed: 10/18/18 15:45> Provider - Provider Date of Admission: 10/17/18 00:42 Attending physician: Fred Pereira MD Consults: 10/17/18 02:59 Infectious Disease Consult Routine Comment: Consulting Provider: Luis Swann Consulting Physician: Luis Swann Reason for Consult: left thigh cellulitis 10/17/18 03:00 General Surgery Consult Routine Comment: Consulting Provider: Byron Mccoy Consulting Physician: Byron Mccoy Reason for Consult: left thigh cellulitis Time Spent in preparation of Discharge (in minutes): 45 Hospital Course - Lab Results Lab Results: Micro Results 10/16/18 22:40 Blood Blood Culture - Preliminary NO GROWTH AFTER 24 HOURS 10/16/18 22:00 Blood Blood Culture - Preliminary NO GROWTH AFTER 24 HOURS Most Recent Lab Values WBC 7.2 10^3/uL (4.5-11.0) 10/18/18 08:00 RBC 4.37 10^6/uL (3.5-6.1) 10/18/18 08:00 Hgb 13.2 g/dL (12.0-16.0) 10/18/18 08:00 Hct 39.3 % (36.0-48.0) 10/18/18 08:00 MCV 89.9 fl (80.0-105.0) 10/18/18 08:00 MCH 30.2 pg (25.0-35.0) 10/18/18 08:00 MCHC 33.6 g/dl (31.0-37.0) 10/18/18 08:00 RDW 12.4 % (11.5-14.5) 10/18/18 08:00 Plt Count 397 10^3/uL (120.0-450.0) 10/18/18 08:00 MPV 8.8 fl (7.0-11.0) 10/18/18 08:00 Gran % 57.8 % (50.0-68.0) 10/18/18 08:00 Lymph % (Auto) 29.3 % (22.0-35.0) 10/18/18 08:00 [place] % (Auto) 6.5 % (1.0-6.0) H 12/14/18 08:00 Eos % (Auto) 5.8 % (1.5-5.0) H 10/18/18 08:00 Baso % (Auto) 0.6 % (0.0-3.0) 10/18/18 08:00 Gran # 4.15 (1.4-6.5) 10/18/18 08:00 Lymph # (Auto) 2.1 (1.2-3.4) 10/18/18 08:00 [place] # (Auto) 0.5 (0.1-0.6) 10/18/18 08:00 Eos # (Auto) 0.4 (0.0-0.7) 10/18/18 08:00 Baso # (Auto) 0.04 K/mm3 (0.0-2.0) 10/18/18 08:00 ESR 52 mm/hr (0.0-20.0) H 10/17/18 04:15 Sodium 141 mmol/L (132-148) 10/18/18 08:00 Potassium 4.7 mmol/L (3.6-5.0) 10/18/18 08:00 Chloride 103 mmol/L (98-107) 10/18/18 08:00 Carbon Dioxide 32 mmol/L (21-33) 10/18/18 08:00 Anion Gap 11 (10-20) 10/18/18 08:00 BUN 12 mg/dL (7-21) 10/18/18 08:00 Creatinine 0.8 mg/dl (0.7-1.2) 10/18/18 08:00 Est GFR ( Amer) > 60 10/18/18 08:00 Est GFR (Non-Af Amer) > 60 10/18/18 08:00 Random Glucose 122 mg/dL (70-110) H 10/18/18 08:00 Calcium 9.3 mg/dL (8.4-10.5) 10/18/18 08:00 Phosphorus 4.2 mg/dL (2.5-4.5) 10/17/18 04:15 Magnesium 2.0 mg/dL (1.7-2.2) 10/17/18 04:15 Total Bilirubin 1.4 mg/dL (0.2-1.3) H 10/16/18 22:40 AST 35 U/L (14-36) 10/16/18 22:40 ALT 29 U/L (7-56) 10/16/18 22:40 Alkaline Phosphatase 94 U/L (38-126) 10/16/18 22:40 C-Reactive Protein 69.10 mg/L (0.0-9.9) H 10/17/18 04:15 Total Protein 7.3 g/dL (5.8-8.3) 10/16/18 22:40 Albumin 4.2 g/dL (3.0-4.8) 10/16/18 22:40 Globulin 3.0 gm/dL 10/16/18 22:40 Albumin/Globulin Ratio 1.4 (1.1-1.8) 10/16/18 22:40 HIV 1&2 Ag/Ab, 4th Gen Nonreactive (Nonreactive) 10/17/18 12:48 - Hospital Course Hospital Course: Upon admission: This is a 58 year old female with PMH of depression, HTN and HLD presenting to the hospital for one day history of left thigh tenderness, redness and swelling. Patient states that she had surgical removal of a lipoma on the left thigh on Sunday, 10/14 and was asymptomatic until this past evening. She denies any local trauma or injury to the area. She denies any similar symptoms in the past. She denies CP, SOB, fevers, headaches, chills, nausea, vomiting, back pain, abdominal pain, diarrhea, constipation, numbness, tingling, swelling, weakness, sensory or motor loss, recent travel, sickness, and lifestyle changes including diet and weight. 12 point ROS noted here, otherwise unremarkable. During her hospital stay Dr. Mccoy was made aware of her being in the hospital and ID was additionally consulted for management of her possibly infectious process. Patient had an uncomplicated hospital course without febrile episodes and was able to ambulate freely and tolerate diet throughout stay. Additionally she never had any discharge or increased redness/ edema/ fluctuance develop over the erythematous area. She received IV antibiotics during her stay and upon discharge was given prescription for Doxycycline and Vantin sent ot her preferred pharmacy. She was instructed to follow up with her primary care doctor as well as Dr. Mccoy as per her previous discharge instructions. - Date & Time of H&P Date of H&P: 10/18/18 Time of H&P: 09:35 Discharge Exam - Head Exam Head Exam: ATRAUMATIC, NORMOCEPHALIC - Eye Exam Eye Exam: EOMI - ENT Exam ENT Exam: Mucous Membranes Moist - Respiratory Exam Respiratory Exam: NORMAL BREATHING PATTERN - Cardiovascular Exam Cardiovascular Exam: REGULAR RHYTHM - GI/Abdominal Exam GI & Abdominal Exam: Soft. absent: Distended, Guarding, Tenderness - Extremities Exam Extremities exam: normal capillary refill, pedal pulses present Additional comments: area of erythema receding from marked margins, incision to left groin CDI with no fluctuance, discharge or increased tenderness, dermabond in place - Neurological Exam Neurological exam: Alert, Normal Gait, Oriented x3 - Psychiatric Exam Psychiatric exam: Normal Affect, Normal Mood - Skin Skin Exam: Dry, Intact, Warm Discharge Plan - Discharge Medications Prescriptions: Cefpodoxime [Vantin] 200 mg PO Q12 #20 tab Doxycycline Hyclate 100 mg PO Q12 #20 capsule - Follow Up Plan Condition: FAIR Disposition: HOME/ ROUTINE Instructions: Wound Care, Quitting Smoking, Cellulitis (Skin Infection), Adult (DC), Flu Vaccine, Cellulitis (DC), Cellulitis (GEN) Additional Instructions: Please follow up with Dr. Mccoy as outpatient next week. Please follow up with your primary medical doctor in 3-5 days. Please complete course of antibiotics: - Vantin - Doxycycline 100mg TWICE PER DAY for 10 days This medication was sent to [facility] If your symptoms worsen, please go to nearest emergency department. Referrals: Byron Mccoy MD [Staff Provider] - <Fred Pereira - Last Filed: 10/20/18 13:02> Provider - Provider Date of Admission: 10/17/18 00:42 Attending physician: Fred Pereira MD Consults: 10/17/18 02:59 Infectious Disease Consult Routine Comment: Consulting Provider: Luis Swann Consulting Physician: Luis Swann Reason for Consult: left thigh cellulitis 10/17/18 03:00 General Surgery Consult Routine Comment: Consulting Provider: Byron Mccoy Consulting Physician: Byron Mccoy Reason for Consult: left thigh cellulitis Hospital Course - Lab Results Lab Results: Micro Results 10/16/18 22:40 Blood Blood Culture - Preliminary NO GROWTH AFTER 3 DAYS 10/16/18 22:00 Blood Blood Culture - Preliminary NO GROWTH AFTER 3 DAYS Most Recent Lab Values WBC 7.2 10^3/uL (4.5-11.0) 10/18/18 08:00 RBC 4.37 10^6/uL (3.5-6.1) 10/18/18 08:00 Hgb 13.2 g/dL (12.0-16.0) 10/18/18 08:00 Hct 39.3 % (36.0-48.0) 10/18/18 08:00 MCV 89.9 fl (80.0-105.0) 10/18/18 08:00 MCH 30.2 pg (25.0-35.0) 10/18/18 08:00 MCHC 33.6 g/dl (31.0-37.0) 10/18/18 08:00 RDW 12.4 % (11.5-14.5) 10/18/18 08:00 Plt Count 397 10^3/uL (120.0-450.0) 10/18/18 08:00 MPV 8.8 fl (7.0-11.0) 10/18/18 08:00 Gran % 57.8 % (50.0-68.0) 10/18/18 08:00 Lymph % (Auto) 29.3 % (22.0-35.0) 10/18/18 08:00 [place] % (Auto) 6.5 % (1.0-6.0) H 10/18/18 08:00 Eos % (Auto) 5.8 % (1.5-5.0) H 10/18/18 08:00 Baso % (Auto) 0.6 % (0.0-3.0) 10/18/18 08:00 Gran # 4.15 (1.4-6.5) 10/18/18 08:00 Lymph # (Auto) 2.1 (1.2-3.4) 10/18/18 08:00 [place] # (Auto) 0.5 (0.1-0.6) 10/18/18 08:00 Eos # (Auto) 0.4 (0.0-0.7) 10/18/18 08:00 Baso # (Auto) 0.04 K/mm3 (0.0-2.0) 10/18/18 08:00 ESR 52 mm/hr (0.0-20.0) H 10/17/18 04:15 Sodium 141 mmol/L (132-148) 10/18/18 08:00 Potassium 4.7 mmol/L (3.6-5.0) 10/18/18 08:00 Chloride 103 mmol/L (98-107) 10/18/18 08:00 Carbon Dioxide 32 mmol/L (21-33) 10/18/18 08:00 Anion Gap 11 (10-20) 10/18/18 08:00 BUN 12 mg/dL (7-21) 10/18/18 08:00 Creatinine 0.8 mg/dl (0.7-1.2) 10/18/18 08:00 Est GFR ( Amer) > 60 10/18/18 08:00 Est GFR (Non-Af Amer) > 60 10/18/18 08:00 Random Glucose 122 mg/dL (70-110) H 10/18/18 08:00 Calcium 9.3 mg/dL (8.4-10.5) 10/18/18 08:00 Phosphorus 4.2 mg/dL (2.5-4.5) 10/17/18 04:15 Magnesium 2.0 mg/dL (1.7-2.2) 10/17/18 04:15 Total Bilirubin 1.4 mg/dL (0.2-1.3) H 10/16/18 22:40 AST 35 U/L (14-36) 10/16/18 22:40 ALT 29 U/L (7-56) 10/16/18 22:40 Alkaline Phosphatase 94 U/L (38-126) 10/16/18 22:40 C-Reactive Protein 69.10 mg/L (0.0-9.9) H 10/17/18 04:15 Total Protein 7.3 g/dL (5.8-8.3) 10/16/18 22:40 Albumin 4.2 g/dL (3.0-4.8) 10/16/18 22:40 Globulin 3.0 gm/dL 10/16/18 22:40 Albumin/Globulin Ratio 1.4 (1.1-1.8) 10/16/18 22:40 HIV 1&2 Ag/Ab, 4th Gen Nonreactive (Nonreactive) 10/17/18 12:48 Attending/Attestation - Attestation I have personally seen and examined this patient.: Yes I have fully participated in the care of the patient.: Yes I have reviewed all pertinent clinical information, including history, physical exam and plan: Yes Notes (Text): 10/20/18 12:58 attending note; patient seen and examined with resident. Patient is alert and awake. Denies any fevers, chills. Denies any abdominal pain, nausea, vomiting. Denies any urinary, bowel complaints. Left thigh swelling and redness improved. swelling is improving. Surgical incision site is clean. ID evaluation appreciated. Treated with IV vancomycin and meropenem. will be discharged home with po Vantin and doxycycline. Patient will follow-up with PMD . follow-up with surgery .
--- NOTE | 2018-10-18 18:16 | CP.PCM.PN ---
Subjective - Date & Time of Evaluation Date of Evaluation: 10/18/18 Time of Evaluation: 09:55 - Subjective Subjective: No fevers, not in distress, much improved pain and swelling on the left thigh, with decreased redness as well, no fevers, no diarrhea. Objective - Vital Signs/Intake and Output Vital Signs (last 24 hours): Temp Pulse Resp BP Pulse Ox 98.5 F 79 20 115/79 95 10/18/18 06:00 10/18/18 06:00 10/18/18 06:00 10/18/18 10:21 10/18/18 06:00 Intake and Output: 10/18/18 10/18/18 06:59 18:59 Intake Total 800 Balance 800 - Labs Labs: 10/18/18 08:00 10/18/18 08:00 - Constitutional Appears: Non-toxic, No Acute Distress - Head Exam Head Exam: NORMAL INSPECTION - Respiratory Exam Respiratory Exam: Decreased Breath Sounds - Cardiovascular Exam Cardiovascular Exam: +S1, +S2 - GI/Abdominal Exam GI & Abdominal Exam: Soft. absent: Tenderness - Extremities Exam Additional comments: left thigh with decreased swelling and erythema Assessment and Plan - Assessment and Plan (Free Text) Plan: Assessment Left thigh cellulitis after biopsy and removal of lipoma CAD S/P PCI obesity with BMI 39 dyslipidemia S/P oophorectomy S/P S/P right finger surgery S/P hysterectomy Plan On Vancomycin and Merrem - cultures have been negative, patient is clinically improving we can change to PO Doxycycline and PO Vantin to complete total 7-10 days of antibiotic therapy (including the days of antibiotics in the hospital) with outpatient follow up with PMD and Surgery - discussed this with patient that follow up is important, patient acknowledges and understands discussed with medical team
== END 2018-10-18 17:03 | disposition home or self-care (01) ==
LOC: ED 21:21 → ERH 10-17 00:42 → 5RSO 10-17 10:17
PROVIDERS: ADMIT Hospitalist; ATTEND Internal Medicine
DX: L03.116 Cellulitis of left lower limb (principal); D17.24 Benign lipomatous neoplasm of skin and subcutaneous tissue of left leg; I10 Essential (primary) hypertension; E87.6 Hypokalemia; F32.9 Major depressive disorder, single episode, unspecified; E78.5 Hyperlipidemia, unspecified; I25.10 Atherosclerotic heart disease of native coronary artery without angina pectoris; E66.9 Obesity, unspecified; Z68.39 Body mass index [BMI] 39.0-39.9, adult; Z98.61 Coronary angioplasty status; Z80.1 Family history of malignant neoplasm of trachea, bronchus and lung; Z79.82 Long term (current) use of aspirin
CPT/HCPCS: 36415; 80048; 80053; 83735; 84100; 85025; 85651; 86140; 87040; 87389; 93971; 96365; 96366; 96367; 96372; 96375; 96376; 99284; G0378; J1650; J2185; J2543; J7030

== ENCOUNTER 2019-02-10 13:11 | Emergency (ER) | payer BC ==
[2019-02-10 13:45] VITALS: BMI 40.7
--- NOTE | 2019-02-10 14:32 | ED PDOC ---
Arrival/HPI - General Time Seen by Provider: 02/10/19 13:20 Historian: Patient - History of Present Illness Narrative History of Present Illness (Text): 02/10/19 14:29 58 year old F with pmh of aortic stenosis and hysterectomy presents with lower left leg edema ongoing for the past 2wks. She reports having an implantable estrogen ring placed in her cervix, but denies oral hormone ingestion. Patient denies recent travels, trauma or falls. She endorses taking daily aspirin. Patient denies any fevers, leg pain,chills, headache, dizziness, chest pain, shortness of breath, dyspnea on exertion, cough, abdominal pain, nausea, vomiting, diarrhea, back pain, neck pain, or any other complaint. Specialist: Dr. Ballard Time/Duration: > week Symptom Onset: Gradual Symptom Course: Unchanged Activities at Onset: Light Context: Home Past Medical History - Provider Review Nursing Documentation Reviewed: Yes - Cardiac Hx Pacemaker: No - Pulmonary Hx Respiratory Disorders: Yes Hx Sleep Apnea: Yes - Neurological Hx Paralysis: No - HEENT Hx HEENT Disorder: No - Renal Hx Renal Disorder: No - Endocrine/Metabolic Hx Endocrine Disorders: No - Hematological/Oncological Hx Blood Transfusions: No - Integumentary Hx Dermatological Disorder: Yes (LYMPH NODES SX LEFT 1991) - Musculoskeletal/Rheumatological Hx Musculoskeletal Disorders: Yes - Genitourinary/Gynecological Hx Genitourinary Disorders: Yes (C SECTION X 2,HYSTERECTOMY OOPHORECTOMY) - Psychiatric Hx Emotional Abuse: No Hx Physical Abuse: No Hx Substance Use: No - Surgical History Hx Cardiac Catheterization: Yes Other/Comment: Lipoma Excision Left Inguinal Region. - Anesthesia Hx Anesthesia Reactions: No Hx Malignant Hyperthermia: No - Suicidal Assessment Feels Threatened In Home Enviroment: No Family/Social History - Physician Review Nursing Documentation Reviewed: Yes Family/Social History: Unknown Family HX Smoking Status: Never Smoked Hx Alcohol Use: Yes (WINE) Hx Substance Use: No Allergies/Home Meds Allergies/Adverse Reactions: Allergies No Known Allergies Allergy (Verified 10/17/18 11:35) Home Medications: Home Meds Medication Instructions Recorded Confirmed Atorvastatin Calcium [Lipitor] 10 mg PO QPM 12/19/13 11/01/18 Aspirin [Aspirin EC] 81 mg PO DAILY 08/20/15 11/01/18 amLODIPine [Norvasc] 10 mg PO DAILY 08/03/17 11/01/18 buPROPion SR [Wellbutrin SR 150 MG] 450 mg PO DAILY 08/03/17 11/01/18 Calcium Carbonate/Vitamin D3 1 tab PO DAILY 09/30/18 11/01/18 [Calcium 600 + Vit D Tablet] Escitalopram [Lexapro] 25 mg PO DAILY 09/30/18 11/01/18 Hydrochlorothiazide [Microzide] 12.5 mg PO DAILY 09/30/18 11/01/18 Multivitamin [Multivitamins] 1 cap PO DAILY 09/30/18 11/01/18 rOPINIRole [Requip] 0.25 mg PO QPM 09/30/18 11/01/18 Miconazole Nitrate [Monistat 1] 1 each VG DAILY 10/31/18 10/31/18 Review of Systems - Physician Review All systems were reviewed & negative as marked: Yes - Review of Systems Constitutional: Normal Eyes: Normal ENT: Normal Respiratory: Normal. absent: SOB, Cough Cardiovascular: Normal Gastrointestinal: Normal. absent: Diarrhea, Nausea, Vomiting Genitourinary Female: Normal. absent: Dysuria Musculoskeletal: Other (lower left leg edema). absent: Arthralgias, Back Pain, Joint Swelling, Myalgias Skin: Normal Neurological: Normal Endocrine: Normal Hemo/Lymphatic: Normal Psychiatric: Normal Physical Exam Vital Signs Reviewed: Yes Vital Signs Temp Pulse Resp BP Pulse Ox 02/10/19 13:44 99.2 F 94 H 18 143/85 95 Temperature: Afebrile Blood Pressure: Normal Pulse: Tachycardic Respiratory Rate: Normal Appearance: Positive for: Well-Appearing, Non-Toxic, Comfortable Pain Distress: Mild Mental Status: Positive for: Alert and Oriented X 3 - Systems Exam Head: Present: Atraumatic, Normocephalic Pupils: Present: PERRL Extroacular Muscles: Present: EOMI Conjunctiva: Present: Normal Mouth: Present: Moist Mucous Membranes Neck: Present: Normal Range of Motion Respiratory/Chest: Present: Clear to Auscultation, Good Air Exchange. No: Respiratory Distress, Accessory Muscle Use Cardiovascular: Present: Regular Rate and Rhythm, Normal S1, S2. No: Murmurs Abdomen: No: Tenderness, Distention, Peritoneal Signs Back: Present: Normal Inspection Upper Extremity: Present: Normal Inspection. No: Cyanosis, Edema Lower Extremity: Present: Edema (2+ pedal), NORMAL PULSES (Intact posterior tibial & dorsal pedis pulse), Normal ROM. No: Tenderness Neurological: Present: GCS=15, CN II-XII Intact, Speech Normal Skin: Present: Warm, Dry, Normal Color. No: Rashes Psychiatric: Present: Alert, Oriented x 3, Normal Insight, Normal Concentration Medical Decision Making ED Course and Treatment: 02/10/19 14:32 Impression: 58 year old F presents with lower left leg edema x2wks PERC: Plan: -- D-dimer -- Duplex lower extremity ultra sound -- Reassess and disposition Prior Visits: Notes and results from previous visits were reviewed. Patient was last seen in the emergency department on Progress Notes: 02/10/19 16:29 D-dimer negative. Dopplers negative for DVT. Patient updated on image findings and advised to follow up with Dr. Ballard(sales service representative). She demonstrates understanding and will follow up. Opportunity for questions given and answered. She is stable for discharge. - Lab Interpretations Lab Results: Lab Results 02/10/19 14:40: D-Dimer, Quantitative < 200 I have reviewed the lab results: Yes - Scribe Statement The provider has reviewed the documentation as recorded by the Scribe Carol Ann Cespedes All medical record entries made by the Scribe were at my direction and personally dictated by me. I have reviewed the chart and agree that the record accurately reflects my personal performance of the history, physical exam, medical decision making, and the department course for this patient. I have also personally directed, reviewed, and agree with the discharge instructions and disposition. Disposition/Present on Arrival - Present on Arrival Any Indicators Present on Arrival: No History of DVT/PE: No History of Uncontrolled Diabetes: No Urinary Catheter: No History of Decub. Ulcer: No History Surgical Site Infection Following: None - Disposition Have Diagnosis and Disposition been Completed?: Yes Diagnosis: Leg edema, Pedal edema Disposition: HOME/ ROUTINE Disposition Time: 16:37 Patient Plan: Discharge Condition: STABLE Discharge Instructions (ExitCare): Swelling, Deep Vein Thrombosis (Blood Clots in the Legs) (DC), Dependent Edema (DC) Print Language: NAURUAN Additional Instructions: All medical record entries made by the Scribe were at my direction and personally dictated by me. I have reviewed the chart and agree that the record accurately reflects my personal performance of the history, physical exam, medical decision making, and the department course for this patient. I have also personally directed, reviewed, and agree with the discharge instructions and disposition. Please follow up with Dr. Ballard Referrals: Shayne Ballard MD [Staff Provider] - Follow up with primary Emi Quezada MD [Family Provider] - Follow up with primary Forms: [employer] (Frisian)
[2019-02-10 15:29] VITALS: RESP 19
[2019-02-10 16:49] VITALS: BP 111/60; PULSE 85; TEMP 97.8; O2SAT 95
--- NOTE | 2019-02-10 16:50 | US ---
HISTORY: Leg pain and swelling. Evaluate for DVT PHYSICIAN(S): Shayne Rosales MD. TECHNIQUE: Duplex sonography and color-flow Doppler with graded compression were used to evaluate the deep venous systems of both lower extremities. FINDINGS: The visualized deep venous systems of both lower extremities are sonographically normal and compressible. Normal wave forms and augmentation are seen. There is no sonographic evidence for deep venous thrombosis in the visualized segments of both lower extremities. IMPRESSION: No sonographic evidence for deep venous thrombosis in the visualized segments of both lower extremities.
== END 2019-02-10 16:48 | disposition home or self-care (01) ==
LOC: ED 13:11
DX: R60.0 Localized edema (principal); I35.0 Nonrheumatic aortic (valve) stenosis